=== PATIENT | male | born 1965 | race Caucasian/White ===

== ENCOUNTER 2021-11-05 14:58 | Emergency (ER) | payer MEDICARE, MEDICAID ==
[2021-11-05 15:57] LABS: #Eosinphils 0.1 thou/uL (0.0-0.7); #Lymphocytes 1.4 thou/uL (1.20-3.40); #Monocytes 0.4 thou/uL (0.11-0.59); #Neutrophils 4.3 thou/uL (1.40-6.50); %Basophils 0.3 % (0.0-1.0); %Eosinophils 2.3 % (0.0-10.0); %Monocytes 5.9 % (0.0-10.0); %Neutrophils 69.5 % (42.0-75.0); Hemoglobin 14.3 g/dL (14.0-18.0); Mean Corpuscular HGB CONC 33.5 g/dL (32.0-36.0); Mean Corpuscular Hemoglobin 31.5 pg (27.0-31.0); Mean Platelet Volume 7.5 fL (7.4-10.4); Platelet Count 179 thou/uL (130-400); Red Blood Cell (RBC) Count 4.54 mill/uL (4.70-6.10); White Blood Cell (WBC) Count 6.1 thou/uL (4.8-10.8)
[2021-11-05 16:15] LABS: ALT (SGPT) 23 U/L (8-55); AST (SGOT) 17 U/L (5-34); Albumin 3.9 g/dL (3.5-5.0); Alkaline Phosphatase 67 U/L (40-110); Anion Gap 12 mmol/L (10-20); BUN (Urea Nitrogen) 11 mg/dL (8.4-25.7); Bilirubin, Total 0.5 mg/dL (0.2-1.2); Calc. Creatinine Clearance 0 mL/min (70-130); Calcium 8.8 mg/dL (7.8-10.44); Carbon Dioxide 25 mmol/L (22-29); Chloride 106 mmol/L (98-107); Globulin 2.6 g/dL (2.4-3.5); Glucose 109 mg/dL (70-105); Potassium 3.8 mmol/L (3.5-5.1); Protein, Total 6.5 g/dL (6.0-8.3); Sodium 139 mmol/L (136-145)
== END 2021-11-05 16:37 | disposition home or self-care (01) ==
LOC: ERS 14:58
DX: R20.2 Paresthesia of skin (principal); R06.02 Shortness of breath; I10 Essential (primary) hypertension; I48.91 Unspecified atrial fibrillation; K21.9 Gastro-esophageal reflux disease without esophagitis; E78.5 Hyperlipidemia, unspecified; M06.9 Rheumatoid arthritis, unspecified
CPT/HCPCS: 36415; 71045; 80053; 84484; 85025; 93005

== ENCOUNTER 2022-06-18 08:28 | Emergency (ER) | payer OTHER, MEDICAID ==
[2022-06-18] MEDS ORDERED: predniSONE 20 MG TAB ONE (09:01)
== END 2022-06-18 09:06 | disposition home or self-care (01) ==
LOC: ERS 08:28
DX: M54.2 Cervicalgia (principal); K21.9 Gastro-esophageal reflux disease without esophagitis; I10 Essential (primary) hypertension; E78.5 Hyperlipidemia, unspecified; Z79.899 Other long term (current) drug therapy
CPT/HCPCS: 99283; J7512

== ENCOUNTER 2022-07-15 09:21 | Emergency (ER) | payer OTHER ==
[2022-07-15] MEDS ORDERED: Acetaminophen 500 MG TAB ONE (09:51)
[2022-07-15] MEDS ORDERED: Morphine 4 MG/ML VIAL ONE (09:51)
== END 2022-07-15 12:04 | disposition home or self-care (01) ==
LOC: ERS 09:21
DX: M54.2 Cervicalgia (principal); E78.5 Hyperlipidemia, unspecified; K21.9 Gastro-esophageal reflux disease without esophagitis; I10 Essential (primary) hypertension; Z79.899 Other long term (current) drug therapy
CPT/HCPCS: 72040; 96372; J2270

== ENCOUNTER 2022-12-22 11:16 | Outpatient (CLI) | payer OTHER | END 2022-12-22 11:17 | disposition home or self-care (01) | LOC: DTY/OP 11:16 | DX: E66.3 Overweight (principal); Z68.29 Body mass index [BMI] 29.0-29.9, adult; Z71.3 Dietary counseling and surveillance | CPT/HCPCS: 97802 ==

== ENCOUNTER 2023-05-10 23:59 | Emergency (ER) | payer OTHER, MEDICAID ==
[2023-05-11 01:29] LABS: #Eosinphils 0.4 thou/uL (0.0-0.7); #Monocytes 0.5 thou/uL (0.11-0.59); #Neutrophils 2.1 thou/uL (1.40-6.50); %Basophils 0.4 % (0.0-1.0); %Eosinophils 9.7 % (0.0-10.0); %Lymphocytes 32.7 % (21.0-51.0); %Monocytes 11.2 % (0.0-10.0); %Neutrophils 45.6 % (42.0-75.0); Hematocrit 37.5 % (42.0-52.0); Hemoglobin 12.8 g/dL (14.0-18.0); Mean Corpuscular HGB CONC 34.1 g/dL (32.0-36.0); Mean Corpuscular Hemoglobin 31.1 pg (27.0-31.0); Mean Platelet Volume 10.1 fL (7.4-10.4); Platelet Count 184 10x3/uL (130-400); Red Blood Cell (RBC) Count 4.12 mill/uL (4.70-6.10); White Blood Cell (WBC) Count 4.6 10x3/uL (4.8-10.8)
[2023-05-11 01:56] LABS: Troponin I Less than 0.010 ng/mL (< 0.028)
[2023-05-11 02:00] LABS: ALT (SGPT) 23 U/L (8-55); AST (SGOT) 19 U/L (5-34); Albumin 3.7 g/dL (3.5-5.0); Alkaline Phosphatase 76 U/L (40-110); Anion Gap 13 mmol/L (10-20); BUN (Urea Nitrogen) 16 mg/dL (8.4-25.7); Bilirubin, Total 0.4 mg/dL (0.2-1.2); Calc. Creatinine Clearance 0 mL/min (70-130); Calcium 8.9 mg/dL (7.8-10.44); Carbon Dioxide 25 mmol/L (22-29); Chloride 108 mmol/L (98-107); Estimated GFR 112; Globulin 2.6 g/dL (2.4-3.5); Glucose 104 mg/dL (70-105); Lipase 39 U/L (8-78); Magnesium 2.2 mg/dL (1.6-2.6); Protein, Total 6.3 g/dL (6.0-8.3); Sodium 142 mmol/L (136-145)
[2023-05-11 02:20] LABS: SARS-CoV-2 NAA Rapid Test Not Detected (NotDetected)
[2023-05-11] MEDS ORDERED: Iopamidol-370 76% 500 ML MDV (1 ML CHARGE) ONE (13:24)
== END 2023-05-11 05:46 | disposition home or self-care (01) ==
LOC: ERS 23:59
DX: K44.9 Diaphragmatic hernia without obstruction or gangrene (principal); I10 Essential (primary) hypertension; Z20.822 Contact with and (suspected) exposure to COVID-19
CPT/HCPCS: 71045; 71275; 80053; 83690; 83735; 83880; 84484; 85025; 85379; 87804 ×2; 93005; U0002; 36415; Q9967

== ENCOUNTER 2023-08-08 11:17 | Outpatient (CLI) | payer OTHER, MEDICAID ==
[2023-08-08] MEDS ORDERED: E-Z-HD 98% W/W 340GM BOT (x-ray ONLY) ONE (11:29)
== END 2023-08-08 11:18 | disposition home or self-care (01) ==
LOC: RAD 11:17
PROVIDERS: ATTEND Otolaryngology Plastic Surgery within the Head & Neck
DX: R13.12 Dysphagia, oropharyngeal phase (principal); R63.30 Feeding difficulties, unspecified; Z98.1 Arthrodesis status
CPT/HCPCS: 74230

== ENCOUNTER 2024-03-28 11:08 | Outpatient (CLI) | payer OTHER, MEDICAID | END 2024-03-28 11:09 | disposition home or self-care (01) | LOC: RAD 11:08 | PROVIDERS: ATTEND Student in an Organized Health Care Education/Training Program | DX: M25.561 Pain in right knee (principal) ==

== ENCOUNTER 2024-04-01 11:58 | Outpatient (CLI) | payer OTHER, MEDICAID | END 2024-04-01 11:59 | disposition home or self-care (01) | LOC: ULT 11:58 | PROVIDERS: ATTEND Orthopaedic Surgery Hand Surgery | DX: G56.03 Carpal tunnel syndrome, bilateral upper limbs (principal) | CPT/HCPCS: 76881 ==

== ENCOUNTER 2024-05-03 12:48 | Emergency (ER) | payer OTHER, MEDICAID ==
[2024-05-03] MEDS ORDERED: Iopamidol-370 76% 500 ML MDV (1 ML CHARGE) ONE (13:00)
[2024-05-03] MEDS ORDERED: Ondansetron PF 4 MG/2 ML Vial ONE (14:13)
[2024-05-03] MEDS ORDERED: Morphine 4 MG/ML VIAL ONE ×2 (14:13→16:35)
[2024-05-03 14:29] LABS: #Basophils Less than 0.03 10x3/uL (0.0-0.2); %Basophils 0.4 % (0.0-1.0); %Eosinophils 2.9 % (0.0-10.0); %Lymphocytes 19.3 % (21.0-51.0); %Monocytes 6.8 % (0.0-10.0); %Neutrophils 70.2 % (42.0-75.0); Hematocrit 40.1 % (42.0-52.0); Hemoglobin 14.1 g/dL (14.0-18.0); Mean Corpuscular HGB CONC 35.2 g/dL (32.0-36.0); Mean Corpuscular Hemoglobin 31.1 pg (27.0-31.0); Mean Corpuscular Volume 88.3 fL (78.0-98.0); Mean Platelet Volume 10.5 fL (7.4-10.4); Platelet Count 183 10x3/uL (130-400); RBC Distribution Width 12.8 % (11.5-14.5); Red Blood Cell (RBC) Count 4.54 mill/uL (4.70-6.10)
[2024-05-03 14:47] LABS: ALT (SGPT) 30 U/L (8-55); AST (SGOT) 21 U/L (5-34); Albumin 3.7 g/dL (3.5-5.0); Alkaline Phosphatase 78 U/L (40-110); Anion Gap 12 mmol/L (10-20); BUN (Urea Nitrogen) 19 mg/dL (8.4-25.7); Bilirubin, Total 0.5 mg/dL (0.2-1.2); Calc. Creatinine Clearance 0 mL/min (70-130); Calcium 9.1 mg/dL (7.8-10.44); Carbon Dioxide 25 mmol/L (22-29); Chloride 107 mmol/L (98-107); Estimated GFR 111; Globulin 2.9 g/dL (2.4-3.5); Glucose 123 mg/dL (70-105); Lipase 40 U/L (8-78); Protein, Total 6.6 g/dL (6.0-8.3); Sodium 140 mmol/L (136-145)
[2024-05-03] MEDS ORDERED: Ketorolac Tromethamine 30 MG (1 mL) VIAL ONE (17:02)
[2024-05-03 19:38] LABS: Bilirubin Negative (Negative); Blood, Urine 1+ (Negative); CAUTI Indications for Culture Pelvic or flank pain; Clarity Turbid (Clear); Glucose, Urine (Dipstick) Normal (Negative); Ketone, Urine Negative (Negative); Leukocyte Negative Leu/uL (Negative); Nitrite Negative (Negative); Protein, Urine (Dipstick) Negative (Neg-Trace); Specific Gravity, Urine 1.038 (1.002-1.036); Urobilinogen Normal mg/dL (Less than 2)
[2024-05-03 19:50] LABS: RBC/HPF 21-50 HPF (0-3)
[2024-05-03 19:51] LABS: Bacteria/HPF Rare-Few HPF (None Seen); Squamous Epithelial 0-3 HPF (0-3); WBC/HPF 0-3 HPF (0-3)
[2024-05-03 19:52] LABS: Urine Culture Reflex No No
== END 2024-05-03 20:30 | disposition home or self-care (01) ==
LOC: ERS 12:48
DX: N13.2 Hydronephrosis with renal and ureteral calculous obstruction (principal); I10 Essential (primary) hypertension; E78.5 Hyperlipidemia, unspecified
CPT/HCPCS: 74177; 80053; 81001; 83690; 85025; J1885; J2272; J2405; 36415; 51701; 96374; 96375; 96376; Q9967

== ENCOUNTER 2024-08-14 08:58 | Outpatient (CLI) | payer OTHER, MEDICAID | END 2024-08-14 08:59 | disposition home or self-care (01) | LOC: CT 08:58 | PROVIDERS: ATTEND Urology | DX: N20.0 Calculus of kidney (principal); K57.30 Diverticulosis of large intestine without perforation or abscess without bleeding; K44.9 Diaphragmatic hernia without obstruction or gangrene; N28.1 Cyst of kidney, acquired | CPT/HCPCS: 74176 ==

== ENCOUNTER 2025-05-13 16:56 | Emergency (ER) | payer OTHER ==
[~2025-05-13 16:56] MED LIST: Iopamidol-370 76% 500 ML MDV (1 ML CHARGE) ONE
[2025-05-13 18:17] LABS: #Basophils Less than 0.03 10x3/uL (0.0-0.2); #Eosinophils 0.24 10x3/uL (0.0-0.7); #Monocytes 0.40 10x3/uL (0.11-0.59); #Neutrophils 2.91 10x3/uL (1.40-6.50); %Basophils 0.4 % (0.0-1.0); %Eosinophils 4.6 % (0.0-10.0); %Lymphocytes 31.5 % (21.0-51.0); %Monocytes 7.6 % (0.0-10.0); %Neutrophils 55.7 % (42.0-75.0); Hematocrit 40.9 % (42.0-52.0); Hemoglobin 14.1 g/dL (14.0-18.0); Mean Corpuscular Hemoglobin 30.1 pg (27.0-31.0); Mean Corpuscular Volume 87.4 fL (78.0-98.0); Platelet Count 185 10x3/uL (130-400); Red Blood Cell (RBC) Count 4.68 mill/uL (4.70-6.10); White Blood Cell (WBC) Count 5.23 10x3/uL (4.8-10.8)
[2025-05-13 18:38] LABS: Magnesium 2.3 mg/dL (1.6-2.6)
[2025-05-13 18:41] LABS: ALT (SGPT) 24 U/L (Less than 45); AST (SGOT) 20 U/L (11-34); Albumin 3.8 g/dL (3.1-4.5); Alkaline Phosphatase 90 U/L (40-110); Anion Gap 15 mmol/L (10-20); BUN (Urea Nitrogen) 13 mg/dL (8.4-25.7); Bilirubin, Total 0.7 mg/dL (0.3-1.2); Calc. Creatinine Clearance 0 mL/min (70-130); Calcium 9.2 mg/dL (7.8-10.44); Carbon Dioxide 23 mmol/L (23-31); Chloride 109 mmol/L (98-107); Globulin 2.8 g/dL (2.4-3.5); Glucose 94 mg/dL (80-115); Potassium 4.0 mmol/L (3.5-5.1); Sodium 143 mmol/L (136-145)
== END 2025-05-13 21:20 | disposition home or self-care (01) ==
LOC: ERS 16:56
DX: K44.9 Diaphragmatic hernia without obstruction or gangrene (principal); R06.02 Shortness of breath; E78.5 Hyperlipidemia, unspecified; I10 Essential (primary) hypertension; I48.91 Unspecified atrial fibrillation; Z79.899 Other long term (current) drug therapy
CPT/HCPCS: 71045; 71275; 80053; 83735; 83880; 84484; 85025; 87428; 93005; 94760

== ENCOUNTER 2025-05-22 13:15 | Emergency (ER) | payer OTHER ==
[2025-05-22] MEDS ORDERED: Methocarbamol 500 MG TAB ONE (15:29)
== END 2025-05-22 16:45 | disposition home or self-care (01) ==
LOC: ERS 13:15
DX: M54.2 Cervicalgia (principal); I10 Essential (primary) hypertension; E78.5 Hyperlipidemia, unspecified; I48.91 Unspecified atrial fibrillation; K21.9 Gastro-esophageal reflux disease without esophagitis; Z79.899 Other long term (current) drug therapy
CPT/HCPCS: 96372; 99283